=== PATIENT | male | born 1945 | race Caucasian/White ===

== ENCOUNTER 2020-03-20 14:36 | Outpatient (CLI) | payer MEDICARE, BC, SELFPAY ==
--- NOTE | ~2020-03-20 | CT_ITS ---
EXAMINATION: CT abdomen pelvis wo con DATE: 03/20/2020 15:18 INDICATION: Stress incontinence TECHNIQUE: Computed tomography (CT) of the abdomen and pelvis was performed without intravenous contr ast. The dose-length product was 979.79 mGy-cm. Automated exposure control and iterative reconstructi on technique were employed. COMPARISON: None. FINDINGS: Lung bases are unremarkable. Heart size normal. No significant pleural or pericardial effus ion. Gallbladder is surgically absent. The liver, spleen, pancreas, adrenal glands and right kidney a re unremarkable. There is a 1.8 cm left renal cyst medially. No renal or ureteral stones. No hydronep hrosis. There is a penile prosthetic device with reservoir in the left lower abdomen. There is a [place] pen[place] prosthetic device on the right with deflated reservoir in the right lower abdomen. Bowel pa ttern is nonobstructive. Colonic diverticulosis without evidence for diverticulitis. There is moderat e lower thoracic and lumbar spondylosis. No osteolytic or osteoblastic lesions. IMPRESSION: 1. No acute abdominal abnormality. Reviewed, dictated and finalized at location A.
== END 2020-03-20 14:37 | disposition home or self-care (01) ==
PROVIDERS: PCP Internal Medicine; Visit Provider Urology
DX: N39.3 Stress incontinence (female) (male) (principal)
CPT/HCPCS: 74176

== ENCOUNTER 2020-05-19 10:00 | Outpatient (CLI) | payer MEDICARE, BC, SELFPAY ==
[2020-05-19 10:41] LABS: Cholesterol 171 mg/dL (0-200); HDL Direct 32 mg/dL; Triglycerides 127 mg/dL (<150)
[2020-05-19 10:44] LABS: Alanine Aminotransferase 27 U/L (4-50); Albumin Level 4.2 g/dL (3.5-5.1); Alkaline Phosphatase 68 U/L (38-126); Aspartate Amino Transferase 26 U/L (17-59); Bilirubin,Total 1.4 mg/dL (0.2-1.3); Blood Urea Nitrogen 13 mg/dL (9-20); Calcium 9.2 mg/dL (8.4-10.2); Carbon Dioxide 26 mmol/L (22-30); Chloride 105 mmol/L (98-107); Estimated Glomerular Filt Rate > 60; Glucose 102 mg/dL (75-110); Potassium 4.1 mmol/L (3.4-5.0); Sodium 138 mmol/L (137-145)
[2020-05-19 10:52] LABS: LDL Cholesterol Direct 115 mg/dL
== END 2020-05-19 10:01 | disposition home or self-care (01) ==
PROVIDERS: PCP Internal Medicine; Visit Provider Internal Medicine Cardiovascular Disease
DX: I25.719 Atherosclerosis of autologous vein coronary artery bypass graft(s) with unspecified angina pectoris (principal)
CPT/HCPCS: 36415; 80053; 80061

== ENCOUNTER 2020-11-17 10:13 | Outpatient (CLI) | payer MEDICARE, BC, SELFPAY ==
[2020-11-17 10:42] LABS: Alanine Aminotransferase 31 U/L (4-50); Alkaline Phosphatase 64 U/L (38-126); Anion Gap 6 mmol/L (8-16); Aspartate Amino Transferase 35 U/L (17-59); Blood Urea Nitrogen 15 mg/dL (9-20); Calcium 8.9 mg/dL (8.4-10.2); Carbon Dioxide 28 mmol/L (22-30); Chloride 105 mmol/L (98-107); Cholesterol 178 mg/dL (0-200); Estimated Glomerular Filt Rate > 60; Glucose 104 mg/dL (75-110); HDL Direct 37 mg/dL; Potassium 4.4 mmol/L (3.4-5.0); Sodium 139 mmol/L (137-145); Triglycerides 120 mg/dL (<150)
[2020-11-17 10:52] LABS: LDL Cholesterol Direct 130 mg/dL
== END 2020-11-17 10:14 | disposition home or self-care (01) ==
LOC: ANHLAB 10:14
PROVIDERS: PCP Internal Medicine; Visit Provider Internal Medicine Cardiovascular Disease
DX: I25.719 Atherosclerosis of autologous vein coronary artery bypass graft(s) with unspecified angina pectoris (principal); Z09 Encounter for follow-up examination after completed treatment for conditions other than malignant neoplasm
CPT/HCPCS: 36415; 80053; 80061; 84443